=== PATIENT | male | born 1950 | race Two or more races ===

== ENCOUNTER 2020-03-18 11:28 | Emergency (ER) | payer MEDICARE, BC ==
[~2020-03-18] VITALS: Ht 182.9 cm; Wt 86.2 kg
--- NOTE | 2020-03-18 11:35 | Emergency Room Report ---
History of Present Illness General Chief Complaint: coronavirus infection Source: Patient Present Illness HPI Patient is a 69-year-old male sent in by primary care physician for coronavirus infection and possible antibody infusion. Patient had prior history of hypertension as well as borderline diabetes. He had recent positive coronavirus testing. Denies any shortness of breath or chest pain at this time. Patient denies any other current complaints. Allergies: Coded Allergies: No Known Allergies (Unverified , 03/18/20) Patient History Past Medical History: see triage record Reviewed Nursing Documentation: PMH: Agreed; PSxH: Agreed Review of Systems All Other Systems: negative except mentioned in HPI Physical Exam Sp02 EP Interpretation: reviewed, normal General Appearance: normal inspection, well appearing, no apparent distress, alert, GCS 15, non-toxic Head: atraumatic ENT: normal ENT inspection, hearing grossly normal, normal voice Neck: normal inspection, full range of motion, supple, no bony tend Respiratory: normal inspection, no respiratory distress, no retraction, no wheezing Cardiovascular #1: regular rate, rhythm Gastrointestinal: normal inspection, normal bowel sounds, non tender, soft, no guarding, no hernia Genitourinary: no CVA tenderness Musculoskeletal: normal inspection, back normal, normal range of motion Neurologic: alert, responsive, speech normal, normal inspection Psychiatric: normal inspection, judgement/insight normal, mood/affect normal Medical Decision Making Diagnostic Impression: Primary Impression: Coronavirus infection, unspecified ER Course Patient presented for coronavirus testing positive. Differential diagnosis include was not limited to mild coronavirus infection, hypoxemia, pneumonia among others. Patient has a benign exam and does not appear to require any imaging or laboratory testing at this time. Patient presents with positive coronavirus test. Based on patient's age patient is high risk for progression. Patient was consented for Bamlanivimab infusion.Patient is advised risk benefits and alternatives of infusion and he indicates understanding and wishes to proceed with the infusion despite the risks. Patient was advised that this is experimental medication.Patient was observed in the emergency department did not have any evidence of acute complications. Patient will be discharged home. He was advised to return if he had any worsening of condition or any other concerns. At the time of discharge patient was awake alert oriented and had no shortness of breath. The patient is advised to follow up with primary care doctor in 1-2 days. Patient is advised to return if any worsening condition or if any changes in status that are concerning. This report is dictated with [employer] computer mechanic software which may occasionally lead to discrepancies related to use of this software. Status: improved Disposition: HOME, SELF-CARE Condition: Stable Jean-Claude Plata MD Mar 18, 2020 11:35
[2020-03-18 11:40] VITALS: BP 138/91
--- NOTE | 2020-03-18 11:40 | NUR ---
ED Nurse Note: Pt walked in to ED for possible antibody infusion for Covid. Pt was referred by Dr. Washington and was tested positive covid today. Denies SOB/ fever. AAOx4, verbally responsive. Isolation precaution is in place. ERMD at bedside.
[2020-03-18] MEDS: Bamlanivimab 700 MG in NS 275 ML IVPB SCH (12:43)
[2020-03-18] MEDS: Bamlanivimab Fact Sheet MISC ONE (12:56)
[2020-03-18 15:10] VITALS: BP 125/85
--- NOTE | 2020-03-18 15:10 | NUR ---
ER DISCHARGE NOTE: Patient is cleared to be discharged per ERMD, pt is aox4, on room air, with stable vital signs. pt was given dc instructions, pt was able to verbalize understanding, pt id band and iv site removed without complications. pt is able to ambulate with steady gait. pt took all belongings.
== END 2020-03-18 15:10 | disposition home or self-care (01) ==
LOC: EMR 11:42
DX: B34.2 Coronavirus infection, unspecified (principal)
CPT/HCPCS: 96365; 99284; J7050; Q0239